=== PATIENT | male | born 1960 | race Caucasian/White ===

== ENCOUNTER 2023-06-20 10:56 | Day surgery (SDC) | payer OTHER ==
[2023-05-30 14:18] VITALS: BMI 37.2
[~2023-06-20 10:56] MED LIST: LACTATED RINGERS 1,000 ML IV SCH
[2023-06-20 11:53] VITALS: RESP 16; TEMP 97.5
[2023-06-20] MEDS ORDERED: PROPOFOL 10 MG/ML 20 ML VIAL IV ONE ×2 (12:23)
[2023-06-20 13:04] LABS: HCT 38.1 % (39.0-53.0); HGB 13.3 gm/dL (13.0-17.5); MCH 29.9 pg (25.0-35.0); MCHC 34.9 g/dL (31.0-37.0); MCV 85.5 fL (80.0-100.0); Mean Platelet Volume 8.7; Platelet Count 105 k/uL (150-450); RBC 4.45 m/uL (4.30-5.90); RDW 14.9 % (11.5-15.5); Reticulocyte % 2.8 % (0.5-2.0); WBC 15.1 k/uL (3.8-10.6)
--- NOTE | 2023-06-20 13:14 | OP ---
OPERATIVE REPORT DATE OF SERVICE : 06/20/2023 PROCEDURE PERFORMED: Bone marrow aspirate and biopsy. INDICATION FOR PROCEDURE: Lymphoma. DESCRIPTION OF PROCEDURE: After obtaining consent from the patient, the procedure was performed in the endoscopy suite under general anesthesia performed by Anesthesia Team. The patient was put in the left lateral decubital position. The right posterior superior iliac crest was localized. Skin was prepped with ChloraPrep. All sterile procedures were followed. 2 mL of 2% Xylocaine was used for local anesthetic. Monoject needle was inserted. About 10 mL aspirate and 2 cm core biopsy were obtained without any difficulties. Pressure applied afterwards. There was negligible blood loss. The patient tolerated the procedure very well without any immediate complications. MMODL / IJN: [id number] /
[2023-06-20 13:18] LABS: Lymphocytes # (M) 9.97 k/uL (1.0-4.8); Monocytes # (M) 0.45 k/uL (0-1.0); Neutrophils # (M) 4.53 k/uL (1.3-7.7); Neutrophils % (M) 30 %; Nucleated Red Blood Cells 0 /100 WBC (0-0); Total Cells Counted 200
[2023-06-20 13:21] LABS: RBC Morphology Normal
[2023-06-20 13:39] VITALS: BP 128/78; PULSE 78
== END 2023-06-20 13:32 | disposition home or self-care (01) ==
LOC: OR 10:56
PROVIDERS: ATTEND Internal Medicine Hematology & Oncology
DX: C83.07 Small cell B-cell lymphoma, spleen (principal); D72.829 Elevated white blood cell count, unspecified; D69.6 Thrombocytopenia, unspecified; M10.9 Gout, unspecified; E78.5 Hyperlipidemia, unspecified; I10 Essential (primary) hypertension; K21.9 Gastro-esophageal reflux disease without esophagitis; Z79.82 Long term (current) use of aspirin; Z79.02 Long term (current) use of antithrombotics/antiplatelets; Z79.811 Long term (current) use of aromatase inhibitors; Z98.890 Other specified postprocedural states; Z80.9 Family history of malignant neoplasm, unspecified; Z71.3 Dietary counseling and surveillance
CPT/HCPCS: 85025; 85045; 38222; J2704